=== PATIENT | male | born 1990 | race Two or more races ===

== ENCOUNTER 2022-03-26 13:17 | Inpatient (IN) | payer OTHER ==
[~2022-03-26] VITALS: Ht 170.2 cm; Wt 71.2 kg
[2022-03-26 14:16] LABS: Basophils # (auto) 0 10 ^3/uL (0-0.2); Basophils % (auto) 0.3 % (0.0-2.0); Eosinophils # (auto) 0 10 ^3/uL (0-0.8); Eosinophils % (auto) 0.5 % (0.0-7.0); Hematocrit 45.9 % (41.0-53.0); Hemoglobin 16.1 g/dL (13.5-17.5); Lymphocytes # (auto) 1.4 10 ^3/uL (0.4-5.4); Mean Corpuscular Hemoglobin 30.5 pg (28.0-32.0); Mean Corpuscular Hgb Conc. 35.1 g/dL (32.0-36.0); Mean Corpuscular Volume 86.9 fL (80.0-100.0); Monocytes # (auto) 1.8 10 ^3/uL (0-1.3); Monocytes % (auto) 17.7 % (0.0-12.0); Neutrophils # (auto) 6.8 10 ^3/uL (1.6-8.6); Neutrophils % (auto) 67.5 % (37.0-80.0); Nucleated Red Blood Cells % 0.2 %; Red Blood Cells 5.29 10^6/uL (4.5-5.90); Red Cell Distribution Width 13.6 % (11.8-14.3); White Blood Cell 10.1 10^3/uL (4.4-10.8)
[2022-03-26 14:31] LABS: Albumin 3.8 g/dL (3.4-5.0); Calcium 8.5 mg/dL (8.5-10.1); Magnesium 2.4 mg/dL (1.6-2.6)
[2022-03-26 14:33] LABS: BUN/Creatinine Ratio 10.2; Bilirubin, Total 1.7 mg/dL (0.2-1.0); Total Protein 8.1 g/dL (6.4-8.2)
[2022-03-26 14:50] LABS: Potassium 2.9 mmol/L (3.5-5.1)
[2022-03-26] MEDS ORDERED: ONDANSETRON HCL 4 MG/2 ML VIAL IV ONE (15:00)
[2022-03-26] MEDS ORDERED: ASPirin 81 mg TAB PO ONE (15:00)
[2022-03-26] MEDS ORDERED: MORPHINE SULFATE 4 MG/ML SYR/VIAL IV ONE (15:00)
[2022-03-26] MEDS ORDERED: POTASSIUM CHL 20 Meq TABLET PO ONE (15:15)
[2022-03-26] MEDS ORDERED: ONDANSETRON HCL 4 MG/2 ML VIAL IV PRN (16:15)
[2022-03-26] MEDS ORDERED: NITROGLYCERIN 0.4 MG SL TAB SL PRN (16:15)
[2022-03-26] MEDS ORDERED: MORPHINE SULFATE INJ 2 MG/ml SYRG IV PRN ×2 (16:15)
[2022-03-26 16:29] LABS: INR 1.1 (0.9-1.15); Partial Thromboplastin Time 28.4 sec (23.6-33.0)
[2022-03-26] MEDS ORDERED: IOHEXOL 350 MG/ML 100ML IJ ONE (17:14)
[2022-03-26] MEDS ORDERED: ANGIOMAX 250 MG VIAL IV ONE (17:15)
[2022-03-26] MEDS ORDERED: HEPARIN SODIUM (PORCINE) 5000 UNITS/ML 1ML VIAL ONE (17:15)
[2022-03-26] MEDS ORDERED: VERAPAMIL 2.5MG/ML INJ 2ML VIAL IV ONE (17:15)
[2022-03-26] MEDS ORDERED: MIDAZOLAM HCL 2MG/2ML 2ml VIAL (1mg/ml) ONE (17:16)
[2022-03-26] MEDS ORDERED: fentaNYL CITRATE 100 MCG/2 ML VL ONE (17:16)
[2022-03-26] MEDS ORDERED: SODIUM CHL 0.9% 0 ML ONE (17:16)
[2022-03-26 20:00] VITALS: BP 92/57
[2022-03-26] MEDS ORDERED: SODIUM CHLOR 0.9% PF (SALINE LOCK) 10ML VIAL/SYR IV SCH (22:00)
[2022-03-26 22:11] LABS: Urine WBC None Seen /hpf (0 - 3)
[2022-03-26 22:22] LABS: Urine Bacteria NONE SEEN /hpf (None Seen); Urine Blood 1+ /uL (Negative)
[2022-03-26 22:28] LABS: Urine Specific Gravity > 1.050 (1.001-1.035)
[2022-03-26 22:31] LABS: Amphetamine Screen, Urine NEGATIVE (NEGATIVE); Barbiturate Scree,Urine NEGATIVE (NEGATIVE); Benzodiazephine Screen, Urine POSITIVE (NEGATIVE); Cannabinoid Screen, Urine NEGATIVE (NEGATIVE); Cocaine Screen, Urine NEGATIVE (NEGATIVE); Phencyclidine Screen, Urine NEGATIVE (NEGATIVE)
[2022-03-26 22:39] LABS: Opiate Scree,Urine NEGATIVE (NEGATIVE)
[2022-03-26 23:43] VITALS: BP 92/41
[2022-03-27] VITALS (15 sets, daily range): BP systolic 95–115; BP diastolic 46–87
[2022-03-27 10:41] LABS: Basophils # (auto) 0 10 ^3/uL (0-0.2); Basophils % (auto) 0.3 % (0.0-2.0); Eosinophils # (auto) 0.1 10 ^3/uL (0-0.8); Eosinophils % (auto) 1.1 % (0.0-7.0); Hematocrit 40.8 % (41.0-53.0); Hemoglobin 13.7 g/dL (13.5-17.5); Lymphocytes # (auto) 1.5 10 ^3/uL (0.4-5.4); Lymphocytes % (auto) 23.2 % (10.0-50.0); Mean Corpuscular Hemoglobin 29.9 pg (28.0-32.0); Mean Corpuscular Hgb Conc. 33.7 g/dL (32.0-36.0); Mean Corpuscular Volume 88.8 fL (80.0-100.0); Monocytes # (auto) 0.9 10 ^3/uL (0-1.3); Monocytes % (auto) 14.6 % (0.0-12.0); Neutrophils # (auto) 3.8 10 ^3/uL (1.6-8.6); Neutrophils % (auto) 60.8 % (37.0-80.0); Nucleated Red Blood Cells % 0.1 %; Red Cell Distribution Width 13.4 % (11.8-14.3); White Blood Cell 6.3 10^3/uL (4.4-10.8)
[2022-03-27 10:54] LABS: Albumin 3.2 g/dL (3.4-5.0); Potassium 3.3 mmol/L (3.5-5.1)
[2022-03-27 10:57] LABS: BUN/Creatinine Ratio 18.3; Bilirubin, Total 1.2 mg/dL (0.2-1.0); Total Protein 6.8 g/dL (6.4-8.2)
[2022-03-27] MEDS ORDERED: MULTIPLE VITAMIN TAB PO ONE (11:00)
[2022-03-27] MEDS ORDERED: AZITHROMYCIN 500MG/ 250ML 250 ML IV ONE (11:00)
[2022-03-27] MEDS ORDERED: POTASSIUM CHL 10 Meq TABLET PO ONE (15:00)
[2022-03-28 05:00] VITALS: BP 109/82
[2022-03-28 08:45] VITALS: BP 117/67
[2022-03-28] MEDS: AZITHROMYCIN 500MG/ 250ML 250 ML IV SCH (11:22)
[2022-03-28] MEDS: MULTIPLE VITAMIN TAB PO SCH (11:23)
[2022-03-28] MEDS: ASPirin 81 mg TAB PO SCH (12:24)
[2022-03-28 13:05] VITALS: BP 113/55
[2022-03-28] MEDS ORDERED: predniSONE 20 MG TAB PO ONE (14:45)
[2022-03-28 15:16] LABS: Basophils # (auto) 0 10 ^3/uL (0-0.2); Basophils % (auto) 0.3 % (0.0-2.0); Eosinophils # (auto) 0.1 10 ^3/uL (0-0.8); Eosinophils % (auto) 2.1 % (0.0-7.0); Hematocrit 40.1 % (41.0-53.0); Hemoglobin 13.4 g/dL (13.5-17.5); Lymphocytes # (auto) 1.6 10 ^3/uL (0.4-5.4); Lymphocytes % (auto) 25.6 % (10.0-50.0); Mean Corpuscular Hgb Conc. 33.4 g/dL (32.0-36.0); Mean Corpuscular Volume 86.9 fL (80.0-100.0); Monocytes # (auto) 0.7 10 ^3/uL (0-1.3); Monocytes % (auto) 11.1 % (0.0-12.0); Neutrophils # (auto) 3.7 10 ^3/uL (1.6-8.6); Neutrophils % (auto) 60.9 % (37.0-80.0); Red Blood Cells 4.62 10^6/uL (4.5-5.90); Red Cell Distribution Width 13.5 % (11.8-14.3); White Blood Cell 6.1 10^3/uL (4.4-10.8)
[2022-03-28] MEDS ORDERED: POTASSIUM EFFERVESENT TAB 25 MEQ PO ONE (16:30)
[2022-03-28 17:00] VITALS: BP 113/66
[2022-03-28 17:35] VITALS: BP 134/92
[2022-03-28 22:00] VITALS: BP 107/54
[2022-03-28] MEDS ORDERED: ATORVASTATIN 20 MG TAB PO SCH (22:00)
[2022-03-29 05:00] VITALS: BP 116/62
[2022-03-29 05:18] LABS: Basophils # (auto) 0 10 ^3/uL (0-0.2); Basophils % (auto) 0.3 % (0.0-2.0); Eosinophils # (auto) 0.1 10 ^3/uL (0-0.8); Eosinophils % (auto) 0.9 % (0.0-7.0); Hematocrit 40.1 % (41.0-53.0); Hemoglobin 13.9 g/dL (13.5-17.5); Lymphocytes # (auto) 1.7 10 ^3/uL (0.4-5.4); Lymphocytes % (auto) 23.7 % (10.0-50.0); Mean Corpuscular Hemoglobin 30.1 pg (28.0-32.0); Mean Corpuscular Hgb Conc. 34.6 g/dL (32.0-36.0); Mean Corpuscular Volume 86.8 fL (80.0-100.0); Monocytes # (auto) 0.6 10 ^3/uL (0-1.3); Monocytes % (auto) 8.5 % (0.0-12.0); Neutrophils # (auto) 4.7 10 ^3/uL (1.6-8.6); Neutrophils % (auto) 66.6 % (37.0-80.0); Nucleated Red Blood Cells % 0.1 %; Red Blood Cells 4.61 10^6/uL (4.5-5.90); Red Cell Distribution Width 13.1 % (11.8-14.3); White Blood Cell 7.1 10^3/uL (4.4-10.8)
[2022-03-29] MEDS ORDERED: IOHEXOL 350 MG/ML 100ML IJ ONE (08:03)
[2022-03-29 08:52] VITALS: BP 111/69
[2022-03-29] MEDS ORDERED: predniSONE 20 MG TAB PO SCH (10:00)
[2022-03-29] MEDS: AZITHROMYCIN 500MG/ 250ML 250 ML IV SCH (10:25)
[2022-03-29] MEDS: ASPirin 81 mg TAB PO SCH (10:25)
[2022-03-29] MEDS: MULTIPLE VITAMIN TAB PO SCH (10:26)
[2022-03-29 14:11] VITALS: BP 118/78
== END 2022-03-29 15:50 | disposition home or self-care (01) | DRG 177 ==
LOC: ER 13:17 → ICU CENTRL 18:41 → DOU IN ICU 18:58 → TELE-EAST 03-27 18:06 → DOU IN ICU 03-27 18:58 → CENTRAL 03-27 21:45 → TELE-CENTR 03-27 22:03
PROVIDERS: ADMIT Emergency Medicine; ATTEND Internal Medicine
PROC: 4A023N7 Measurement of Cardiac Sampling and Pressure, Left Heart, Percutaneous Approach (ICD-10-PCS; principal; 2022-03-26)
PROC: B2111ZZ Fluoroscopy of Multiple Coronary Arteries using Low Osmolar Contrast (ICD-10-PCS; 2022-03-26)
PROC: B2151ZZ Fluoroscopy of Left Heart using Low Osmolar Contrast (ICD-10-PCS; 2022-03-26)
DX: U07.1 COVID-19 (principal); I40.0 Infective myocarditis; I42.9 Cardiomyopathy, unspecified; I10 Essential (primary) hypertension; A08.4 Viral intestinal infection, unspecified
CPT/HCPCS: 36415; 71045; 71275; 80053; 80307; 81001; 83735; 84132; 84484; 85025; 85610; 85730; 87081; 87493; 93005; 93306; 93458; 93970; 99152; G0378; J2250; J7042

== ENCOUNTER → 2022-05-06 | Outpatient (CLI) | payer OTHER ==
[2022-05-06 11:51] LABS: Albumin 4.1 g/dL (3.4-5.0); Calcium 9.3 mg/dL (8.5-10.1); Potassium 5.4 mmol/L (3.5-5.1)
[2022-05-06 11:57] LABS: BUN/Creatinine Ratio 9.5; Total Protein 7.8 g/dL (6.4-8.2)
== END | disposition home or self-care (01) ==
LOC: LAB 10:41
PROVIDERS: ATTEND Internal Medicine
DX: I51.4 Myocarditis, unspecified (principal)
CPT/HCPCS: 36415; 80053; 80061; 84443

== ENCOUNTER → 2022-05-11 | Outpatient (CLI) | payer OTHER ==
[2022-05-11 13:04] LABS: Albumin 4.2 g/dL (3.4-5.0); Calcium 9.3 mg/dL (8.5-10.1); Potassium 4.1 mmol/L (3.5-5.1)
[2022-05-11 13:09] LABS: BUN/Creatinine Ratio 18.3; Bilirubin, Total 1.8 mg/dL (0.2-1.0); Total Protein 7.7 g/dL (6.4-8.2)
== END | disposition home or self-care (01) ==
LOC: LAB 11:54
PROVIDERS: ATTEND Internal Medicine
DX: E78.5 Hyperlipidemia, unspecified (principal)
CPT/HCPCS: 36415; 80053; 82150; 83690

== ENCOUNTER → 2022-08-05 | Outpatient (CLI) | payer OTHER ==
[2022-08-05 09:23] LABS: Potassium 4.1 mmol/L (3.5-5.1)
== END | disposition home or self-care (01) ==
LOC: LAB 08:31
PROVIDERS: ATTEND Internal Medicine
DX: E78.00 Pure hypercholesterolemia, unspecified (principal); K76.0 Fatty (change of) liver, not elsewhere classified
CPT/HCPCS: 36415; 80061; 84132; 84450; 84460

== ENCOUNTER → 2022-08-23 | Day surgery (SDC) | payer OTHER ==
[2022-08-20 09:26] LABS: Basophils # (auto) 0 10 ^3/uL (0-0.2); Basophils % (auto) 0.4 % (0.0-2.0); Eosinophils # (auto) 0 10 ^3/uL (0-0.8); Eosinophils % (auto) 0.8 % (0.0-7.0); Hematocrit 47.8 % (41.0-53.0); Hemoglobin 16.1 g/dL (13.5-17.5); Lymphocytes # (auto) 1.5 10 ^3/uL (0.4-5.4); Lymphocytes % (auto) 35.1 % (10.0-50.0); Mean Corpuscular Hemoglobin 29.8 pg (28.0-32.0); Mean Corpuscular Hgb Conc. 33.7 g/dL (32.0-36.0); Mean Corpuscular Volume 88.4 fL (80.0-100.0); Monocytes # (auto) 0.3 10 ^3/uL (0-1.3); Monocytes % (auto) 6.8 % (0.0-12.0); Neutrophils # (auto) 2.5 10 ^3/uL (1.6-8.6); Neutrophils % (auto) 56.9 % (37.0-80.0); Nucleated Red Blood Cells % 0.1 %; Red Blood Cells 5.41 10^6/uL (4.5-5.90); Red Cell Distribution Width 13.1 % (11.8-14.3); White Blood Cell 4.3 10^3/uL (4.4-10.8)
[2022-08-20 09:29] LABS: Urine Bacteria NONE SEEN /hpf (None Seen); Urine Blood Negative /uL (Negative); Urine Specific Gravity 1.005 (1.001-1.035); Urine WBC <1 /hpf (0 - 3)
[2022-08-20 09:40] LABS: INR 1.09 (0.9-1.15); Partial Thromboplastin Time 30.1 sec (24.6-33.4)
[2022-08-20 09:47] LABS: Calcium 8.8 mg/dL (8.5-10.1)
[2022-08-20 09:51] LABS: BUN/Creatinine Ratio 15.4; Bilirubin, Total 1.6 mg/dL (0.2-1.0); Total Protein 7.3 g/dL (6.4-8.2)
[~2022-08-23] VITALS: Ht 170.2 cm; Wt 70.3 kg
[~2022-08-23] MED LIST: DexAMETHasone SOD PHOS 10MG/1ML VIAL INJ ONE; HYDROmorphone HCL 2 MG/ML VL/or syr IV PRN; LABETALOL HCL 5 MG/ML 4ML SYRINGE IV PRN; MEPERIDINE HCL (25 MG/ML) 1ML VIAL ONE; MIDAZOLAM HCL 2MG/2ML 2ml VIAL (1mg/ml) IV PRN; MIDAZOLAM HCL 2MG/2ML 2ml VIAL (1mg/ml) ONE; MORPHINE SULFATE 4 MG/ML SYR/VIAL IV PRN; ONDANSETRON HCL 4 MG/2 ML VIAL IV PRN; PROPOFOL 10 MG/ML 20 ML IV ONE; ceFAZolin 1GM/50ML 100 ML IV ONE; ePHEDrine SULFATE 50 MG/ML AMP IV PRN; fentaNYL CITRATE 100 MCG/2 ML VL ONE
[2022-08-23 11:45] VITALS: BP 120/79
== END | disposition home or self-care (01) ==
LOC: SUR 08:00
PROVIDERS: ATTEND Urology
DX: N20.0 Calculus of kidney (principal); Z20.822 Contact with and (suspected) exposure to COVID-19
CPT/HCPCS: 36415; 50590; 80053; 81001; 85025; 85610; 85730; 87086; C1769; J0690; J1100; J2175; J2250; J2704; J3010; J7030; U0003

== ENCOUNTER → 2022-09-09 | Outpatient (CLI) | payer OTHER | END | disposition home or self-care (01) | LOC: LAB 16:18 | PROVIDERS: ATTEND Urology | DX: N20.0 Calculus of kidney (principal) ==

== ENCOUNTER → 2022-12-06 | Outpatient (CLI) | payer OTHER ==
[2022-12-06 10:48] LABS: Urine WBC None Seen /hpf (0 - 3)
[2022-12-06 11:10] LABS: Basophils # (auto) 0 10 ^3/uL (0-0.2); Basophils % (auto) 0.2 % (0.0-2.0); Eosinophils # (auto) 0.1 10 ^3/uL (0-0.8); Eosinophils % (auto) 1.4 % (0.0-7.0); Hematocrit 46.5 % (41.0-53.0); Hemoglobin 16.2 g/dL (13.5-17.5); Lymphocytes # (auto) 1.6 10 ^3/uL (0.4-5.4); Lymphocytes % (auto) 32.4 % (10.0-50.0); Mean Corpuscular Hemoglobin 30.5 pg (28.0-32.0); Mean Corpuscular Hgb Conc. 34.9 g/dL (32.0-36.0); Mean Corpuscular Volume 87.4 fL (80.0-100.0); Monocytes # (auto) 0.3 10 ^3/uL (0-1.3); Neutrophils # (auto) 2.9 10 ^3/uL (1.6-8.6); Nucleated Red Blood Cells % 0.6 %; Red Blood Cells 5.32 10^6/uL (4.5-5.90); Red Cell Distribution Width 13.1 % (11.8-14.3)
[2022-12-06 12:04] LABS: Urine Bacteria NONE SEEN /hpf (None Seen); Urine Blood Negative /uL (Negative); Urine Mucus FEW (None Seen); Urine Specific Gravity 1.019 (1.001-1.035); Urine Sperm PRESENT /hpf (None Seen)
[2022-12-06 12:21] LABS: Albumin 4.2 g/dL (3.4-5.0); BUN/Creatinine Ratio 12.2; Calcium 8.7 mg/dL (8.5-10.1); Potassium 4.1 mmol/L (3.5-5.1); Total Protein 7.4 g/dL (6.4-8.2); Uric Acid 3.9 mg/dL (3.5-7.2)
== END | disposition home or self-care (01) ==
LOC: LAB 10:36
PROVIDERS: ATTEND Internal Medicine
DX: E78.5 Hyperlipidemia, unspecified (principal)
CPT/HCPCS: 36415; 80053; 80061; 81001; 84439; 84443; 84550; 85025; 85652; 86677

== ENCOUNTER → 2023-08-04 | Outpatient (CLI) | payer OTHER ==
[2023-08-04 13:28] LABS: Alanine Aminotransferase 56 U/L (7-40); Aspartate Aminotransferase 23 U/L (13-40); Cholesterol 242 mg/dL (< 200); HDL Cholesterol 42 mg/dL (40-59); LDL Cholesterol 150 mg/dL (< 100); Triglycerides 210 mg/dL (< 150)
[2023-08-04 13:32] LABS: Hepatitis B Surface Antibody Positive (Negative)
[2023-08-04 13:44] LABS: Hepatitis B Surface Antigen Negative (Negative)
[2023-08-04 14:05] LABS: Hepatitis B Core IgM Negative
[2023-08-05 11:07] LABS: Hepatitis B Core Total Antibod Negative (Negative)
[2023-08-06 02:06] LABS: Chlamydia Trachomatis, NAA Negative (Negative); Neisseria gonorrhoeae, NAA Negative (Negative)
== END | disposition home or self-care (01) ==
LOC: LAB 12:12
PROVIDERS: ATTEND Internal Medicine
DX: Z77.21 Contact with and (suspected) exposure to potentially hazardous body fluids (principal); E78.00 Pure hypercholesterolemia, unspecified
CPT/HCPCS: 36415; 80061; 84450; 84460; 86703; 86705; 86706; 86803; 87340